=== PATIENT | female | born 1930 | race Caucasian/White ===

== ENCOUNTER 2017-02-06 03:25 | Emergency (ER) | payer OTHER ==
[~2017-02-06] VITALS: Ht 167.6 cm; Wt 75.9 kg
[~2017-02-06 03:25] MED LIST: AMARYL4 MG PO; ASPIR 8181 M1 PO; GLIMEPIRIDE4 MG PO; JANUVIA25 M1 PO; LANTUS 10100 UNITS/ SC; LANTUS 3 M100 UNITS1 SC; LANTUS100 UNIT/1 SQ; MULTI-DAY VITA1 EACH PO; PRINIVIL20 MG PO; PROTONIX40 M1 PO; SIMVASTATIN20 M1 PO; SIMVASTATIN40 MG PO
[2017-02-06 04:26] LABS: HEMATOCRIT 36.2 % (36.0-46.0); MCH 24.5 PG (29.0-34.0); MCHC 31.5 G/DL (30.0-36.0); MCV 77.8 FL (83-99); MEAN PLAT.VOLUME 10.8 uM^3 (9.5-12.4); PLATELET COUNT 152 K/uL (156-360); RBC DIS.WIDTH-CV 15.6 % (11.8-14.6); RBC DIS.WIDTH-SD 43.3 % (39-53); RED BLOOD COUNT 4.65 M/uL (3.80-5.20); WHITE BLOOD COUNT 6.5 K/uL (4.1-10.2)
[2017-02-06 04:29] LABS: ADD MIUA? YES; BILIRUBIN NEGATIVE; BLOOD NEGATIVE; COLOR YELLOW ((YELLOW)); GLUCOSE (STRIP) NEGATIVE; KETONES NEGATIVE; LEUKOCYTES TRACE; NITRITE NEGATIVE; PROTEIN (STRIP) NEGATIVE; SPECIFIC GRAVITY 1.013 (1.000-1.030); UROBILINOGEN 0.2 MG/DL (0.2-1.0)
[2017-02-06 04:35] LABS: BACTERIA NONE SEEN /HPF; EPITHELIAL CELLS NONE SEEN /HPF; MUCUS TRACE /LPF; RED BLOOD CELLS 0-5 /HPF (0-5); UCUL ADDED? NO; WHITE BLOOD CELLS 0-5 /HPF (0-5)
[2017-02-06 04:37] LABS: CHLORIDE 108 mEq/L (99-109); POTASSIUM 4.3 mEq/L (3.7-5.4); SODIUM 142 mEq/L (136-147)
[2017-02-06 04:40] LABS: GLUCOSE 108 mg/dL (70-99)
[2017-02-06 04:41] LABS: ANION GAP 12 MEQ/L (2-14); TOTAL BILIRUBIN 0.5 mg/dL (0.0-1.0)
[2017-02-06 04:43] LABS: ALKALINE PHOSPHATASE 51 IU/L (3-129); GFR ESTIMATE (CALCULATED) 25 mL/min/
[2017-02-06 04:44] LABS: UREA NITROGEN (BUN) 23 mg/dL (9-23)
[2017-02-06 04:47] LABS: LIPASE 41 U/L (1.0-51.0)
[2017-02-06 04:53] LABS: TROP-I INTERPRETATION NEGATIVE; TROPONIN-I < 0.01 ng/mL (0.0-0.30)
[2017-02-06 06:17] LABS: POINT-OF-CARE METER ID UU13113702
[2017-02-06 06:40] VITALS: BP 162/75
== END 2017-02-06 06:41 | disposition home or self-care (01) ==
LOC: EME → EDBD 03:25 → EME 06:41
PROVIDERS: Emergency Medicine
DX: E11.649 Type 2 diabetes mellitus with hypoglycemia without coma (principal); I10 Essential (primary) hypertension; Z91.81 History of falling; Z79.4 Long term (current) use of insulin; Z79.84 Long term (current) use of oral hypoglycemic drugs
CPT/HCPCS: 70450; 71020; 80053; 81003; 82948; 83690; 84484; 85027; 93005; 99281; 99285